=== PATIENT | male | born 2000 | race Hispanic/Latino ===

== ENCOUNTER 2021-08-29 04:48 | Emergency (ER) | payer BC ==
[2021-08-29] MEDS ORDERED: Midazolam HCl 2 mg/2 ml Vial ONE (05:00)
== END 2021-08-29 05:50 | disposition home or self-care (01) ==
LOC: CSHERS 04:48
DX: F41.0 Panic disorder [episodic paroxysmal anxiety] (principal)
CPT/HCPCS: 93005; 96372; J2250